=== PATIENT | female | born 1980 | race Caucasian/White ===

== ENCOUNTER 2016-04-15 06:19 | Emergency (ER) | payer OTHER ==
[~2016-04-15] VITALS: Ht 175.3 cm; Wt 108.9 kg
[~2016-04-15 06:19] MED LIST: NORCO 325 MG-51 TAB PO; NORFLEX100 MG PO
[2016-04-15 06:36] VITALS: BP 152/95
--- NOTE | 2016-04-15 06:42 | ED HAND/WRIST INJURY COMPLAINT ---
History of Present Illness General Chief Complaint: Hand or Wrist Injury Stated Complaint: " BURNT MY FINGERS A LITTLE BIT"LT HAND Source: patient Exam Limitations: no limitations Vital Signs & Intake/Output Vital Signs & Intake/Output Vital Signs Date Time Temp Pulse Resp B/P Pulse O2 O2 Flow FiO2 Ox Delivery Rate 04/15 0636 98.4 105 16 152/95 96 Room Air Allergies Coded Allergies: NO KNOWN ALLERGIES (12/25/13) Reconcile Medications Acetaminophen/Hydrocodone Bi ([place] 325 MG-5 MG) 1 TAB TAB 1-2 TAB PO Q6P PRN NECK PAIN Orphenadrine Citrate (Norflex) [address] 1 TAB PO BID PRN NECK SPASMS Triage Note: 35yo FEMALE TO TRIAGE W/CO LEE TO L MIDDLE AND RING FINGERS WHILE COOKING IN TOASTER OVEN. Triage Nurses Notes Reviewed? yes : No Patient currently breastfeeds: No HPI: Patient accidentally burned her middle and ring finger of her left hand on the toaster oven approximately 45 minutes ago. Positive blister formation. Burning pain to both those fingers. No pain outside of the burned area. Patient's last tetanus shot was 2 years ago. There are no aggravating or mitigating factors. Patient put bacitracin on the lee and then comes in for evaluation. 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 The pain is burning in nature and she rates it as 6 out of 10. There are no aggravating or mitigating factors. Past History Travel History Traveled to [place] past 21 day No Medical History Any Pertinent Medical History? none Surgical History Surgical History: non-contributory Psychosocial History What is your primary language Armenian Tobacco Use: Current Daily Use Daily Tobacco Use Amount/Type: => 5 Cigarettes daily ETOH Use: occasional use Illicit Drug Use: denies illicit drug use Family History Hx Contributory? No Review of Systems Review of Systems Constitutional: Reports: no symptoms. Respiratory: Reports: no symptoms. Cardiovascular: Reports: no symptoms. GI: Reports: no symptoms. Musculoskeletal: Reports: see HPI. Skin: Reports: see HPI. Immunologic/Allergic: Reports: no symptoms. Physical Exam Physical Exam General Appearance: well developed/nourished, alert, awake, mild distress Eyes: Bilateral: PERRL, EOMI. Neck: normal inspection, supple Cardiovascular/Respiratory: normal breath sounds, normal peripheral pulses, regular rate/rhythm, no respiratory distress Hand Left: SECOND-DEGREE BURN TO THE BASE OF THE THIRD AND FOURTH DIGIT ON THE DORSAL ASPECT. Hand Right: normal inspection, normal range of motion Neurologic/Tendon: normal sensation, normal motor functions, normal tendon functions Progress Differential Diagnosis: SECOND DEGREE BURN Plan of Care: Bandage Departure Departure Disposition: HOME OR SELF CARE Condition: Stable Clinical Impression Primary Impression: Second degree burn of finger of left hand Referrals: UNKNOWN (PCP/Family) Additional Instructions: RETURN IF AREA TURNS RED, HOT TO THE TOUCH, PUS DRAIANGE OR FOR ANY CONCERNS Departure Forms: Customer Survey General Discharge Information
== END 2016-04-15 06:54 ==
LOC: ERH 06:19
DX: T23.232A Burn of second degree of multiple left fingers (nail), not including thumb, initial encounter (principal); X15.8XXA Contact with other hot household appliances, initial encounter; Y93.G3 Activity, cooking and baking